=== PATIENT | female | born 1990 | race Caucasian/White ===

== ENCOUNTER 2017-10-01 09:08 | Emergency (ER) | payer OTHER ==
[~2017-10-01] VITALS: Ht 157.5 cm; Wt 54.0 kg
[2017-10-01 09:23] VITALS: Ht 157.5 cm; Wt 54.0 kg
[2017-10-01 10:32] LABS: BASOPHIL % 0.5 % (0-2); PLATELET COUNT 192 x10^3mcL (130-400)
[2017-10-01 10:39] LABS: CALCIUM 8.5 mg/dL (8.5-10.1); CHLORIDE SERUM 108 mmol/L (98-107); CREATININE SERUM 0.8 mg/dL (0.6-1.0); GFR1 > 60 mL/min; GLUCOSE SERUM 97 mg/dL (74-106); POTASSIUM SERUM 3.7 mmol/L (3.5-5.1); SODIUM SERUM 141 mmol/L (136-145)
[2017-10-01 10:44] LABS: ALKALINE PHOSPHATASE 47 U/L (46-116); ALT/SGPT 18 U/L (14-59); AST/SGOT 12 U/L (15-37); BILIRUBIN TOTAL 0.79 mg/dL (0.20-1.00); LIPASE 145 IU/L (73-393); TOTAL PROTEIN, SERUM 6.7 g/dL (6.4-8.2)
[2017-10-01 10:49] LABS: ALBUMIN 3.3 g/dL (3.4-5.0)
[2017-10-01 11:59] VITALS: BP 105/69
== END 2017-10-01 11:59 | disposition home or self-care (01) ==
LOC: ED 09:08
PROVIDERS: Emergency Medicine
DX: R10.9 Unspecified abdominal pain (principal); R11.2 Nausea with vomiting, unspecified
CPT/HCPCS: J1885; J2550; J7030

== ENCOUNTER 2019-02-11 14:14 | Emergency (ER) | payer OTHER ==
[~2019-02-11] VITALS: Ht 157.5 cm; Wt 55.8 kg
[2019-02-11 14:22] VITALS: Ht 157.5 cm; Wt 55.8 kg
[2019-02-11 16:52] LABS: CALCIUM 8.9 mg/dL (8.5-10.1); CARBON DIOXIDE 25.1 mmol/L (21-32); CHLORIDE SERUM 103 mmol/L (98-107); CREATININE SERUM 0.8 mg/dL (0.6-1.0); GFR1 > 60 mL/min; GLUCOSE SERUM 77 mg/dL (74-106); POTASSIUM SERUM 3.6 mmol/L (3.5-5.1); SODIUM SERUM 139 mmol/L (136-145)
[2019-02-11 16:56] LABS: ALBUMIN 3.8 g/dL (3.4-5.0); ALKALINE PHOSPHATASE 64 U/L (46-116); ALT/SGPT 31 U/L (14-59); AMYLASE 60 U/L (25-115); AST/SGOT 13 U/L (15-37); BILIRUBIN TOTAL 0.66 mg/dL (0.20-1.00); LIPASE 66 IU/L (73-393); TOTAL PROTEIN, SERUM 7.5 g/dL (6.4-8.2)
[2019-02-11 17:00] LABS: BASOPHIL % 0.4 % (0-2); PLATELET COUNT 213 x10^3mcL (130-400); RED CELL DISTRIBUTION WIDTH 13.6 % (11.5-14.5)
[2019-02-11 17:50] VITALS: BP 108/62
== END 2019-02-11 17:50 | disposition home or self-care (01) ==
LOC: ED 14:14
PROVIDERS: Emergency Medicine
DX: K58.9 Irritable bowel syndrome, unspecified (principal); R11.10 Vomiting, unspecified; F41.9 Anxiety disorder, unspecified; F17.210 Nicotine dependence, cigarettes, uncomplicated
CPT/HCPCS: 99406; J0780; J1885; J7030

== ENCOUNTER 2019-03-10 00:34 | Emergency (ER) | payer OTHER ==
[~2019-03-10] VITALS: Ht 157.5 cm; Wt 57.2 kg
[2019-03-10 00:38] VITALS: BP 117/86; Ht 157.5 cm; Wt 57.2 kg
== END 2019-03-10 03:05 | disposition left against medical advice (07) ==
LOC: ED 00:34
DX: Z53.21 Procedure and treatment not carried out due to patient leaving prior to being seen by health care provider (principal)

== ENCOUNTER 2019-04-18 07:34 | Emergency (ER) | payer OTHER ==
[~2019-04-18] VITALS: Ht 157.5 cm; Wt 54.4 kg
[2019-04-18 07:44] VITALS: Ht 157.5 cm; Wt 54.4 kg
[2019-04-18 08:41] LABS: BASOPHIL % 0.6 % (0-2); PLATELET COUNT 201 x10^3mcL (130-400); RED CELL DISTRIBUTION WIDTH 13.1 % (11.5-14.5)
[2019-04-18 08:58] LABS: AMPHETAMINE QUAL UR NEGATIVE (See below)
[2019-04-18 09:02] LABS: CARBON DIOXIDE 26.9 mmol/L (21-32); CHLORIDE SERUM 109 mmol/L (98-107); CREATININE SERUM 0.8 mg/dL (0.6-1.0); GFR1 > 60 mL/min; GLUCOSE SERUM 93 mg/dL (74-106); POTASSIUM SERUM 3.3 mmol/L (3.5-5.1); SODIUM SERUM 145 mmol/L (136-145)
[2019-04-18 09:03] LABS: ALBUMIN 3.6 g/dL (3.4-5.0); ALKALINE PHOSPHATASE 54 U/L (46-116); ALT/SGPT 13 U/L (14-59); AST/SGOT 14 U/L (15-37); BILIRUBIN TOTAL 0.43 mg/dL (0.20-1.00); CALCIUM 7.9 mg/dL (8.5-10.1)
[2019-04-18 10:40] VITALS: BP 101/71
== END 2019-04-18 11:50 | disposition left against medical advice (07) ==
LOC: ED 07:34
PROVIDERS: Emergency Medicine
DX: R45.851 Suicidal ideations (principal); F41.9 Anxiety disorder, unspecified; Z98.51 Tubal ligation status
CPT/HCPCS: 36415; G0480

== ENCOUNTER 2019-04-18 12:51 | Emergency (ER) | payer OTHER ==
[~2019-04-18] VITALS: Ht 162.6 cm; Wt 59.0 kg
[2019-04-18 12:56] VITALS: Ht 162.6 cm; Wt 59.0 kg
[2019-04-18 15:12] VITALS: BP 96/55
== END 2019-04-18 15:12 | disposition home or self-care (01) ==
LOC: ED 12:51
DX: F32.9 Major depressive disorder, single episode, unspecified (principal); F41.9 Anxiety disorder, unspecified; Z98.51 Tubal ligation status; Z98.890 Other specified postprocedural states

== ENCOUNTER 2019-04-20 00:05 | Inpatient (IN) | payer OTHER ==
[~2019-04-20] VITALS: Ht 157.5 cm; Wt 56.7 kg
--- NOTE | 2019-04-20 00:08 | NUR ---
CALLED ONCE. NO REPLY
[2019-04-20 01:18] LABS: microscopic required? NO
[2019-04-20 01:45] LABS: BASOPHIL % 0.5 % (0-2); PLATELET COUNT 243 x10^3mcL (130-400); RED CELL DISTRIBUTION WIDTH 13.7 % (11.5-14.5)
--- NOTE | 2019-04-20 01:45 | NUR ---
PT. PRESENTS TO ER C/O OVERDOSE, PT. STATES SHE TOOK 8 AMBIEN PILLS & 4 TYLENOL WITH CODEINE PILLS, DENIES SI & HI AT THIS TIME, PT. STATED SHE TOOK THE PILLS BECAUSE SHE WANTED TO SLEEP, SHE ALSO STATED SHE SMOKED THC THIS AFTERNOON, PLACED ON CM, PULSE OX, IN VIEW OF STAFF, SAFETY PRECAUTIONS IN PLACE, COLLECTED URINE & SENT TO LAB, VSS, WILL MONITOR.
--- NOTE | 2019-04-20 02:01 | NUR ---
REPORTED TO POISON CONTROL SPOKE WITH DIEGO, CASE# [id number], SHE STATES TO MONITOR PT. FOR 6 HOURS, MONITOR FOR ST ELEVATION, ELEVATED TYLENOL LEVELS, REPPIRATORY DEPRESSION, CAN GIVEN MUCOMYST IF TYLENOL LEVEL ELEVATED, SUPPORTIVE CARE, CALL BACK WITH LABS RESULTS, DR. FINCH MADE AWARE
[2019-04-20 02:06] LABS: CALCIUM 8.2 mg/dL (8.5-10.1); CARBON DIOXIDE 29.3 mmol/L (21-32); CHLORIDE SERUM 105 mmol/L (98-107); CREATININE SERUM 0.9 mg/dL (0.6-1.0); GFR1 > 60 mL/min; GLUCOSE SERUM 89 mg/dL (74-106); POTASSIUM SERUM 3.7 mmol/L (3.5-5.1); SODIUM SERUM 144 mmol/L (136-145)
[2019-04-20 02:11] LABS: ALBUMIN 3.9 g/dL (3.4-5.0); ALKALINE PHOSPHATASE 61 U/L (46-116); ALT/SGPT 12 U/L (14-59); AST/SGOT 11 U/L (15-37); BILIRUBIN TOTAL 0.33 mg/dL (0.20-1.00); TOTAL PROTEIN, SERUM 7.6 g/dL (6.4-8.2)
[2019-04-20 02:39] LABS: AMPHETAMINE QUAL UR NONE DETECTED (See below)
[2019-04-20 03:03] LABS: UA SPECIFIC GRAVITY <=1.005 (1.005-1.035); urine erythrocyte NEGATIVE (NEGATIVE)
--- NOTE | 2019-04-20 03:29 | NUR ---
PT. LAYING IN BED, SLEEPING, RESTING, AROUSABLE TO TOUCH, STATES SHE STILL FEELS MILD ANXIETY, CURRENTLY DENIES SI & HI, DENIES HALLUCNATIONS, DENIES DELUSIONS, SAFETY PRECAUTIONS IN PLACE, OFFERED TOILETING, FLUIDS, SNACKS, ON CM, PULSE OX, IN VIEW OF STAFF, WILL CONTINUE TO MONITOR
--- NOTE | 2019-04-20 03:34 | NUR ---
SPOKE WITH HANNAH FROM POSION CONTROL, RECOMMENDING REPEAT TYLENOL & ASPIRIN LEVELS BEFORE 5 AM, DR. KRAFT MADE AWARE, WILL FOLLOW UP
--- NOTE | 2019-04-20 03:38 | NUR ---
PT. STATES SHE ALSO HAS A BULTRANS PATCH ON HER LEFT SHOULDER, SHE STATES THAT SHE DOES NOT HAVE A PRESCRIPTION FOR IT, BUT WAS ABLE TO GET ONE FROM A FRIEND, SHE STATES SHE HAS PAIN FROM HER LUPUS, DR. KRAFT MADE AWARE,
--- NOTE | 2019-04-20 03:55 | NUR ---
PT. SPEAKING TO TELE CONSULT FOR PSYCH EVAL
[2019-04-20 04:38] LABS: CALCIUM 7.8 mg/dL (8.5-10.1); CARBON DIOXIDE 30.4 mmol/L (21-32); CHLORIDE SERUM 108 mmol/L (98-107); CREATININE SERUM 0.8 mg/dL (0.6-1.0); GFR1 > 60 mL/min; GLUCOSE SERUM 99 mg/dL (74-106); POTASSIUM SERUM 3.5 mmol/L (3.5-5.1); SODIUM SERUM 144 mmol/L (136-145)
[2019-04-20 04:55] LABS: ALKALINE PHOSPHATASE 52 U/L (46-116); ALT/SGPT 12 U/L (14-59); AST/SGOT 8 U/L (15-37); BILIRUBIN TOTAL 0.39 mg/dL (0.20-1.00); FREE T4 0.91 ng/dL (0.76-1.46); TOTAL PROTEIN, SERUM 6.5 g/dL (6.4-8.2)
[2019-04-20 04:56] LABS: ALBUMIN 3.3 g/dL (3.4-5.0)
--- NOTE | 2019-04-20 05:23 | NUR ---
PT. LAYING IN BED, SLEEPING, EASILY AROUSED, ORIENTED X 4, NO ACUTE DISTRESS NOTED, PT. STATES SHE STILL FEELS ANXIOUS, DENIES PAIN, DENIES SI & HI, PT. COOPERATIVE, SAFETY PRECAUTIONS IN PLACE, INSTRUCTED PT. VERBALIZE FEELINGS, PT. STATED SHE WANTS TO REST AT THIS TIME, IN VIEW OF STAFF, WILL MONITOR,
--- NOTE | 2019-04-20 05:30 | NUR ---
BELONGING REMOVED FROM PT. PLACED IN A HOSPITAL BAG, LABEL APPLIED, IN PT. CABINET, (ALLYSSA ROBERTSON, BLACK SHIRT)
--- NOTE | 2019-04-20 07:00 | NUR ---
REPORT GIVEN TO MARILIA DYE
--- NOTE | 2019-04-20 07:05 | NUR ---
PT AMBULATED TO THE RESTROOM WITH STEADY GAIT WITH ASSISTANCE FROM MYSELF
--- NOTE | 2019-04-20 07:13 | NUR ---
PT AT BEDSIDE. PT SITTING UP EATING BFAST WITH NAD.
--- NOTE | 2019-04-20 09:15 | NUR ---
PT RECLINING ON GURABDIEL WITH NAD. PT PLAYING ON CELL PHONE, REMAINS AT BEDSIDE, IN FULL VIEW OF NURSING STATION, WILL CONTINUE TO MONITOR.
--- NOTE | 2019-04-20 12:45 | NUR ---
PT SITTING UP ON GURNEY EATING LUNCH WITH NAD. AT BEDSIDE. PT IN FULL VIEW OF NURSING STATION, WILL CONTINUE TO [facility].
--- NOTE | 2019-04-20 17:44 | NUR ---
Called the following facilities; [facility] s/w [place], no beds but packet fax for wait list [facility] s/w [place] no beds but packet fax for wait list [facility] s/w Annalise no beds [facility] s/w Kayla no beds [facility] s/w [place] no beds [facility] s[facility]w [place] no beds
--- NOTE | 2019-04-20 18:37 | NUR ---
PT SITTING UP ON GURNEY EATING DINNER WITH NAD. AT BEDSIDE. IN FULL VIEW OF NURSING STATION, WILL CONTINUE TO MONITOR.
--- NOTE | 2019-04-20 19:08 | NUR ---
REPORT GIVEN TO NNAMDI Marinelli FOR FURTHER CARE OF PT
--- NOTE | 2019-04-20 19:56 | NUR ---
PT REPORTS SHE VOMITED WHILE IN THE RESTROOM. SHE'S REQUESTING NAUSEA MEDICATION. DR FINCH MADE AWARE.
--- NOTE | 2019-04-20 20:00 | NUR ---
MEDICATED PT FOR PAIN. PLEASE SEE EMAR.
--- NOTE | 2019-04-20 20:43 | NUR ---
PT ASLEEP ON GURNEY, EASILY AROUSABLE, RESP E/U, IN NO ACUTE DISTRESS. BOYFRIEND AT BEDSIDE.
--- NOTE | 2019-04-20 21:05 | NUR ---
TYREE DWYER AT BEDSIDE FOR ORTHO STATIC VITALS.
--- NOTE | 2019-04-20 21:37 | NUR ---
[facility]-fax packet for review
--- NOTE | 2019-04-20 21:55 | NUR ---
PT'S BOYFRIEND BROUGHT PT CHANGE OF UNDERWEAR AND 2 PURSES. INFORMED PT, HER BOYFRIEND IS NOT ALLOWED TO BRING OUTSIDE BELONGINGS D/T PT BEING 5150 HOLD. IF SHE NEEDS UNDERWEAR OR FOOD, WE CAN PROVIDE HER THE ITEMS. PT VERBALIZED UNDERSTANDING. ADDITIONAL PT'S BELONGINGS (2 PURSES AND EXTRA CLOTHES) PLACED IN THE RADIO ROOM.
--- NOTE | 2019-04-20 22:00 | NUR ---
PT AMBULATED TO THE RESTROOM.
--- NOTE | 2019-04-20 22:07 | NUR ---
PT RETURNED TO RM 5 FROM THE RESTROOM WITHOUT INCIDENT.
--- NOTE | 2019-04-20 22:13 | NUR ---
PT AAOX4, CLEAR SPEECH, PLAYING ON PHONE, RESP E/U, IN NO ACUTE DISTRESS.
--- NOTE | 2019-04-20 22:27 | NUR ---
PT'S BOYFRIEND AT BEDSIDE REQUESTING TO [employer] MECH[employer] SUPERVISOR PT'S ADDITIONAL BELONGINGS (2 PURSES AND CHANGE OF CLOTHES). BOYFRIEND AT BEDSIDE.
--- NOTE | 2019-04-20 23:44 | NUR ---
PT AMBULATED TO THE RESTROOM ACCOMPANIED BY HARDIK BLUM.
--- NOTE | 2019-04-21 00:01 | NUR ---
PT AAOX4, PLAYING WITH PHONE, RESP E/U, IN DIRECT VIEW OF NURSING STATION, BOYFRIEND AT BEDSIDE.
[2019-04-21] MEDS ORDERED: DICYCLOMINE HCL10 MG (00:07)
[2019-04-21] MEDS ORDERED: AMBIEN5 MG (00:07)
[2019-04-21] MEDS ORDERED: TYLENOL WITH CO1 TA2 (00:08)
--- NOTE | 2019-04-21 00:23 | NUR ---
SPOKE WITH PATIENT AND VISITOR AT BEDSIDE. EXPLAINED THAT PATIENT IS BEING ADMITTED TO THE INPATIENT HOSPITAL AFTER WAITING FOR PSYCHIATRIC HOSPITAL PLACEMENT IN THE ED FOR 24 HOURS. PT, WHO IS AWAKE AND ALERT, VERBALIZED UNDERSTANDING. EXPLAINED TO PT AND VISITOR THAT VISITORS IN THE MAIN HOSPITAL WOULD BE LIMITED BY VISITING HOURS, WELL AT THE DISCRETION OF THE CHARGE NURSE. PT AND VISITOR VERBALIZED UNDERSTANDING.
--- NOTE | 2019-04-21 00:46 | NUR ---
GAVE REPORT TO AISHWARYA DYE. ALL QUESTIONS ANSWERED AT THIS TIME. RN AWARE PT DOES NOT HAVE/ NEED IV ACCESS AT THIS TIME SHE IS MEDICALLY CLEARED. RN AGREED AND AWARE
--- NOTE | 2019-04-21 01:05 | NUR ---
RECEIVED PT FROM ED VIA WHEELCHAIR, PT STATED THAT SHE FELT TIRED CAUSING HER TO TAKE 8 AMBIEN PILLS AND 4 PILLS OF TYLENOL W/ CODEINE. DROWSY, W/ FIXED PUPILS, NO FACIAL DROOP/ARM DRIFT. ABLE TO FOLLOW SIMPLE COMMANDS. NO SOB NOTED, O2 SAT-100% RA. DENIES CHEST PAIN/PRESSURE. DENIES ABDOMINAL DISCOMFORT. NO IV ACCESS AT THIS TIME. DENIES SUICIDAL THOUGHTS/IDEATION. CALL LIGHT ON REACH. SIDE RAILS UPX2. ENDORSED TO PRIMARY NURSE RUBIO FOR CONTINUITY OF CARE
[2019-04-21 01:11] VITALS: BP 119/79
[2019-04-21 01:17] VITALS: Ht 157.5 cm; Wt 56.7 kg
[2019-04-21 05:45] VITALS: BP 97/59
--- NOTE | 2019-04-21 06:57 | NUR ---
PT SLEPT AT INTERVALS THROGHOUT THE NIGHT,BREATHING EVEN AND UNLABORED ON RA. NO SIGNIFICANT CHANGES DURING SHIFT. DENIES SUICIDAL IDEATION. ALL NEEDS ASSESSED AND ATTENDED TO. SITTER AT BEDSIDE. BED AT LOWEST SETTING. SIDE RAILS X2 UP. CALL LIGHT WITHING REACH. WILL ENDORSE CARE TO AM NURSE.
--- NOTE | 2019-04-21 07:25 | NUR ---
RECEIVED PT FROM PAPER MACHINE OPERATOR. PT AWAKE, ALERT A/OX4. PT ON ROOM AIR WITH NO RESP DISTRESS NOTED. PT REFUSES IV ACCESS AT THIS TIME. PERIPHERAL PULSES PALPABLE, NO EDEMA NOTED. PT DENIES SUICIDAL IDEATION AT THIS TIME. NO APPARENT ISSUES WITH ELIMINATION. PT AMBULATORY, SITTER AT BEDSIDE. SAFETY MEASURES IN PLACE, BED LOW AND LOCKED. CALL LIGHT WITHIN REACH.
[2019-04-21 08:23] VITALS: BP 101/65
--- NOTE | 2019-04-21 10:26 | NUR ---
CC received report from PM shift. Will continue to follow up with surrounding facilities to locate psych placement
--- NOTE | 2019-04-21 11:38 | NUR ---
PT COMPLAINING OF ANXIETY. ATIVAN ADMINISTERED ORDERED PRN (SEE EMAR). FAMILY AT BEDSIDE. PT AWAITING PSYCH CONSULT WITH DR FIELD.
--- NOTE | 2019-04-21 13:00 | NUR ---
PT RESTING AT THIS TIME, PT BOYFRIEND AT BEDSIDE. SITTER AT BEDSIDE. ALL NEEDS MET AT THIS TIME. PT CALM AND COOPERATIVE.
[2019-04-21 13:07] VITALS: BP 101/65
--- NOTE | 2019-04-21 15:38 | NUR ---
PT COMPLAINING OF HEADACHE, TYLENOL ADMINISTERED ORDERED PRN. SAFETY MEASURES MAINTAINED. WILL MONITOR.
--- NOTE | 2019-04-21 16:21 | NUR ---
PT REFUSING VITAL SIGNS AT THIS TIME. EDUCATION PROVIDED TO PATIENT ON PLAN OF CARE. PT STATED "FRANCISCO TRIED TO BE PATIENT WITH EVERYONE DOWNSTAIRS AND UPSTAIRS AND IM OVER IT."
--- NOTE | 2019-04-21 18:54 | NUR ---
PT STABLE AT THIS TIME. WILL CONTINUE TO MONITOR AND ENDORSE CARE TO TOOTH GRINDER.
--- NOTE | 2019-04-21 19:31 | NUR ---
RECEIVED REPORT FROM AM NURSE. PT AAOX4, ABLE TO MAKE NEEDS KNOWN. MED0-SURG. DENIES ANY CP/PRESSURE AT THIS TIME. PALPABLE PULSES TO ALL EXTREMETIES. NO DEDEMA NOTED. LUNG SOUNDS CTA. BREATHING EVEN AND UNLABORED ON RA. NO ACUTE DISTRESS NOTED. ACTIVE BS X4 QUAD, DENIES N/V/D. VOIDS FREELY BRP. AMBULATORY. NO IV ACCESS. PT REFUSED TO HAVE IV INSERTED. PT STATING SHE IS READING TO GO HOME. DR FIELD CAME TO TALK TO PT. ANSWERED ALL QUESTIONS AND CONSERNS. PT STATES UNDERSTANDING AND HAS NO MORE QUESTIONS. OKAY TO GO HOME PER DR FIELD. BED AT LOWEST SETTING. SIDE RAILS X2 UP. CALL LIGHT WIHTING REACH. SITTER AT BEDSIDE. WILL CONTINUE TO MONITOR.
--- NOTE | 2019-04-21 19:50 | NUR ---
PT BEEN DISCHARGED, ALL BELONGINGS WITH PATIENT. D/C PAPERWORKED SIGNED, ALL QUESTIONS AND CONSERNS ANSWERED. PT STATES UNDERSTANDING AND HAS NO MORE QUESTIONS.
== END 2019-04-21 19:50 | disposition home or self-care (01) | DRG 817 ==
LOC: ED 00:05 → MU 04-21 00:04
PROVIDERS: Emergency Medicine; ADMIT Internal Medicine Pulmonary Disease
DX: T42.6X2A Poisoning by other antiepileptic and sedative-hypnotic drugs, intentional self-harm, initial encounter (principal); M32.9 Systemic lupus erythematosus, unspecified; F41.9 Anxiety disorder, unspecified; Y92.89 Other specified places as the place of occurrence of the external cause; Z98.51 Tubal ligation status; E03.9 Hypothyroidism, unspecified; F31.9 Bipolar disorder, unspecified; F17.210 Nicotine dependence, cigarettes, uncomplicated; F10.20 Alcohol dependence, uncomplicated; Y90.9 Presence of alcohol in blood, level not specified
CPT/HCPCS: 84439; 99406; G0378; G0480; Q0092; Q0162

== ENCOUNTER 2019-07-20 11:10 | Emergency (ER) | payer OTHER ==
[~2019-07-20] VITALS: Ht 157.5 cm; Wt 57.6 kg
[~2019-07-20 11:10] MED LIST: AMBIEN5 MG; DICYCLOMINE HCL10 MG; TYLENOL WITH CO1 TA2
[2019-07-20 11:35] VITALS: BP 125/91; Ht 157.5 cm; Wt 57.6 kg
== END 2019-07-20 15:43 | disposition home or self-care (01) ==
LOC: ED 11:10
DX: S23.3XXA Sprain of ligaments of thoracic spine, initial encounter (principal); S09.8XXA Other specified injuries of head, initial encounter; H05.222 Edema of left orbit; F17.210 Nicotine dependence, cigarettes, uncomplicated; E03.9 Hypothyroidism, unspecified; M32.9 Systemic lupus erythematosus, unspecified; K58.9 Irritable bowel syndrome, unspecified; Z98.51 Tubal ligation status; Y09 Assault by unspecified means; Y93.89 Activity, other specified; Y92.89 Other specified places as the place of occurrence of the external cause; Y99.8 Other external cause status
CPT/HCPCS: 72072